=== PATIENT | male | born 1995 | race Two or more races ===

== ENCOUNTER 2017-09-15 23:42 | Emergency (ER) | payer MEDICAID ==
[~2017-09-15] VITALS: Ht 177.8 cm; Wt 151.0 kg
--- NOTE | 2017-09-16 01:58 | NUR ---
DR NADEGE MORENO MD AT BEDSIDE FOR MSE.
[2017-09-16] MEDS ORDERED: LIDOCAINE HCL 1% 20 ML VIAL IJ ONE (02:00)
[2017-09-16] MEDS ORDERED: SULFAMETH/TRIMETH 800/160 MG TABLET PO ONE (02:15)
[2017-09-16] MEDS ORDERED: HYDROCODONE/APAP 5-325MG TABLET ONE (02:27)
[2017-09-16] MEDS ORDERED: SULFAMETH/TRIMETH 800/160 MG TABLET ONE (02:28)
[2017-09-16] MEDS ORDERED: HYDROCODONE/APAP 5-325MG TABLET PO ONE (02:30)
--- NOTE | 2017-09-16 02:45 | NUR ---
Patient discharged to home in stable conditon. Written and verbal after care instructions given. Patient verbalizes understanding of instructions. Pt ambulated from ER w/ steady gait. Pt took all personal belongings. No distress noted.
[2017-09-16 03:03] VITALS: BP 124/78
== END 2017-09-16 03:03 | disposition home or self-care (01) ==
LOC: ER 23:50
DX: L02.11 Cutaneous abscess of neck (principal)
CPT/HCPCS: 10060; 99283; A4663